=== PATIENT | female | born 1980 | race Two or more races ===

== ENCOUNTER 2017-01-10 03:56 | Inpatient (IN) | payer BC ==
[~2017-01-10] VITALS: Ht 165.1 cm
--- NOTE | ~2017-01-10 | OR ---
PATIENT'S NAME: [facility] AGE: 36 Y [address] ROOM: [place] [address] LOCATION: GOBS ADMIT DATE: 01/10/2017 OR/Procedure Report DISCHARGE DATE: FAMILY PHYSICIAN: Gomez Villareal MD ATTENDING PHYSICIAN: Madeline Juarez SURGEON: Padmaja Jang MD COMPOSITE BOND TECHNICIAN: DATE OF PROCEDURE: 01/10/2017 This is a 36-year-old, 2, para 1-0-0-1 who presents with a due date of 01/15/2017. Her care was complicated by advanced maternal age and group B strep positive. She presents completely dilated with spontaneous rupture of membranes upon admission. Blood was drawn, but we could not get an IV started and she needed to push. We had to push through 3 contractions and she delivered spontaneously. She delivered the vertex over a second- degree laceration. Shoulders and body were delivered. Baby was delivered through loose body cord. Baby girl was placed on the maternal abdomen. Her cord was doubly clamped and cut. Baby girl is doing well. A 3-vessel cord was noted and the blood sample was drawn. Placenta delivers spontaneously and intact. It is a heart-shaped placenta, but it does not look like there is any cotyledons missing. The cervix and vagina are intact. I had infused the perineum with 1% Xylocaine and she had a second-degree laceration. I infused more than 1% Xylocaine in this area. A 2-0 chromic suture repaired the laceration. Lochia is normal. Sponge and needle counts were correct. The patient tolerated the procedure well. PADMAJA JANG MD KHP/modl /[id number] d: 01/10/17 0716 t: 01/14/17 0952, OPERATIVE SUMMARY
[~2017-01-10 03:56] MED LIST: FEOSOL325 MG PO; FOLIC ACID 40400 MCG PO; PRENATAL 1+1)(P1 TAB PO
[2017-01-10 04:28] LABS: BASOPHIL # 0.1 K/uL (0.0-0.2); BASOPHIL % 0.8 %; EOSINOPHIL # 0.2 K/uL (0.0-0.5); EOSINOPHIL % 1.5 %; HEMATOCRIT 41.7 % (33.0-46.0); HEMOGLOBIN 14.1 g/dL (11.0-15.0); IMMATURE GRANULOCYTE # 0.2 K/uL (0.0-0.3); IMMATURE GRANULOCYTE % 1.4 %; LYMPHOCYTE # 4.2 K/uL (0.8-4.0); LYMPHOCYTE % 35.9 %; MCH 31.1 pg (27.0-34.0); MCHC 33.8 gm/dL (32.0-36.5); MCV 92.1 fl (83.0-98.0); MONOCYTE # 0.8 K/uL (0.0-1.0); MONOCYTE % 6.6 %; NEUTROPHIL # (ANC) 6.3 K/uL (1.8-7.8); NEUTROPHIL % 53.8 %; NRBC % 0 /100WBC (0-0.00); PLATELET COUNT 261 K/uL (150-450); RBC 4.53 M/uL (3.50-5.50); RDW-CV 13.4 % (11.9-14.6); WBC 11.7 K/uL (4.0-11.0)
--- NOTE | 2017-01-10 16:02 | NUR ---
Reviewed patient's chart. Patient had good care. No concerns noted in the patient's chart. Will plan on seeing patient tomorrow and offer supports.
--- NOTE | 2017-01-10 17:04 | NUR ---
VS 117/72/88 84 16 98.8 FUNDUS FIRM, EVEN, SMALL FLOW, VOIDED SINCE DELIVERY SHOWERED THIS AM AND TOOK KVNG THIS AFTERNOON, TOLLERATES ACTIVITY WELL, HAD MOTRIN LAST @ 0840, TYLENOL 650MG @ 1248 AND PERCOCET 1 TABLET @ 1500
--- NOTE | 2017-01-11 04:19 | NUR ---
Last VS: T:98.8 P:87 R: 14 BP: 100/53 Pain ratin. Last pain med: Motrin Medicated at: 2022 Effective: Yes Breasts: SOFT, Nipples: intact, tender Fundus: firm, midline Lochia: small, rubra Epis/Perineum: 2nd degree, tender Voiding well: WNL Significant event: VSS, independent with cares
[2017-01-11 05:08] LABS: BASOPHIL # 0.1 K/uL (0.0-0.2); BASOPHIL % 0.7 %; EOSINOPHIL # 0.2 K/uL (0.0-0.5); EOSINOPHIL % 1.7 %; HEMOGLOBIN 10.8 g/dL (11.0-15.0); IMMATURE GRANULOCYTE # 0.2 K/uL (0.0-0.3); IMMATURE GRANULOCYTE % 1.6 %; LYMPHOCYTE # 3.8 K/uL (0.8-4.0); MCH 30.7 pg (27.0-34.0); MCHC 32.9 gm/dL (32.0-36.5); MCV 93.2 fl (83.0-98.0); MONOCYTE % 7.2 %; MPV 10.1 fl (9.4-12.4); NEUTROPHIL # (ANC) 8.2 K/uL (1.8-7.8); NEUTROPHIL % 60.8 %; NRBC % 0 /100WBC (0-0.00); PLATELET COUNT 235 K/uL (150-450); RBC 3.52 M/uL (3.50-5.50); RDW-CV 13.7 % (11.9-14.6); WBC 13.5 K/uL (4.0-11.0)
[2017-01-11 05:13] LABS: HEMATOCRIT 32.8 % (33.0-46.0)
--- NOTE | 2017-01-12 05:52 | NUR ---
VSS. FUNDUS FIRM, EVEN 2 DOWN. SMALL FLOW. MOTRIN LAST AT 1937. BREAST FEEDING WELL. PLANNING ON GOING HOME TODAY.
[2017-01-12] MEDS ORDERED: PERCOCET 5-3251 EACH PO (10:02)
[2017-01-12] MEDS ORDERED: MOTRIN800 MG PO (10:02)
== END 2017-01-12 12:00 | disposition disaster alternative care site (69) | DRG 775 ==
LOC: GOBS 03:56 → EDSTATUS 01-15 03:55 → GOBM 01-15 11:59
PROVIDERS: Obstetrics & Gynecology; ADMIT Obstetrics & Gynecology
PROC: 0KQM0ZZ Repair Perineum Muscle, Open Approach (ICD-10-PCS; principal; 2017-01-10)
PROC: 10E0XZZ Delivery of Products of Conception, External Approach (ICD-10-PCS; principal; 2017-01-10)
DX: O99.824 Streptococcus B carrier state complicating childbirth (principal); O62.3 Precipitate labor; O70.1 Second degree perineal laceration during delivery; Z3A.39 39 weeks gestation of pregnancy; Z37.0 Single live birth
CPT/HCPCS: J2590; J7120